=== PATIENT | female | born 1975 | race Caucasian/White ===

== ENCOUNTER 2023-09-25 22:56 | Emergency (ER) | payer BC, OTHER ==
[~2023-09-25] VITALS: Ht 167.6 cm; Wt 72.6 kg
[2023-09-25] MEDS ORDERED: SERT25TA PO (23:30)
[2023-09-25] MEDS ORDERED: AMOX-430 PO (23:49)
[2023-09-25] MEDS ORDERED: KETOROLAC TROMETHAMINE 30 MG INJ ONE (23:51)
[2023-09-25] MEDS ORDERED: PIPERACILLIN/TAZOBACTAM/D5W 50 ML IV ONE (23:51)
[2023-09-25] MEDS: PIPERACILLIN SODIUM/TAZOBACTAM 3.375 G in IV DEXTROSE 5% 50 ML IV ONE (23:57)
[2023-09-25] MEDS: KETOROLAC TROMETHAMINE 30 MG INJ IVP ONE (23:57)
[2023-09-26] MEDS ORDERED: TDAP DIPH,PERTUSS,TET VAC/PF 0.5 ML DISP.SYRIN IM ONE (00:45)
[2023-09-26] MEDS: TDAP DIPH,PERTUSS,TET VAC/PF 0.5 ML DISP.SYRIN IM ONE (00:49)
[2023-09-26 00:55] VITALS: BP 145/66; TEMP 97.9; O2SAT 98
== END 2023-09-26 00:55 | disposition home or self-care (01) ==
LOC: ER 23:00
DX: L03.012 Cellulitis of left finger (principal); F32.A Depression, unspecified; Z79.899 Other long term (current) drug therapy; W55.03XA Scratched by cat, initial encounter; Y93.89 Activity, other specified; Y92.89 Other specified places as the place of occurrence of the external cause; Y99.8 Other external cause status
CPT/HCPCS: 99284; 96365; 96375; 90715; 90471; J1885; J2543; A4606; A4663